=== PATIENT | female | born 2000 | race Caucasian/White ===

== ENCOUNTER 2022-02-21 18:46 | Emergency (ER) | payer OTHER, SELFPAY ==
--- NOTE | 2022-02-21 18:57 | ED.URI ---
HPI - URI/Sore Throat General Chief Complaint: Upper Respiratory Infection Stated Complaint: Sore Throat,Chills,Lt Ear Irritation,Headache Time Seen by Provider: 02/21/22 18:57 Source: patient and RN notes reviewed Mode of arrival: ambulatory Limitations: no limitations History of Present Illness HPI Narrative: 21-year-old female presents to the [facility] with mom with complaints of a sore throat, chills, ear pain and headache since yesterday. Reports a fever of 102 at home. Taken Advil. APARICIO elicited complaint: sore throat Related Data Allergies Allergy/AdvReac Type Severity Reaction Status Date / Time No Known Allergies Allergy Verified 02/21/22 19:06 Review of Systems Review of Systems: All systems reviewed & are unremarkable except as noted in HPI and below Constitutional: Constitutional: Reports no additional constitutional complaints, Denies chills and Denies fever(s) Eyes: Eyes: Reports no additional eye complaints ENT: Reports as per HPI, Reports nasal congestion and Reports sore throat Cardiovascular: Cardiovascular: Reports no additional cardiovascular complaints Respiratory: Respiratory: Reports no additional respiratory complaints Gastrointestinal: Gastrointestinal: Reports no additional gastrointestinal complaints Musculoskeletal: Musculoskeletal: Reports no additional musculoskeletal complaints Integumentary/Breasts: Skin/Breast: Reports system reviewed and no additional complaints, except as docu Neurologic: Reports system reviewed and no additional complaints, except as documented Psychiatric: Psychiatric: Reports no additional psychiatric complaints Allergic/Immunologic: Allergic/Immunologic: Reports no additional allergic/immunologic complaints PMFSH Comments At the time of my signature, I reviewed and agree with the nursing past medical, surgical, social, and family history. There is no relevant family history pertinent to the patient complaint. Exam Const: General: healthy appearing, no acute distress and alert Nutritional Appearance: well nourished Orientation/consciousness: patient oriented x3 Limitations: no limitations HENMT: Head: normal to inspection Ears: external ears normal, TM's normal bilaterally and EAC's normal General nose exam: Normal external nose present and Normal nares present Face and sinus: normal facial exam Mouth: Yes Normal oral and palatal mucosa present, Yes lip normal and Yes moist mucous membranes Throat: uvula midline, abnormal tonsil bilateral erythema and hypertrophy 3+, posterior oropharynx abnormal cobblestoning and erythema; no exudates and no uvular edema Eyes: General: appearance normal, both eyes and all related structures Pupils: Equal, round and reactive pupils present Neck: Neck: normal visual inspection, no lymphadenopathy and no meningeal signs Chest: Chest palpation & inspection: normal inspection of the chest Resp: Effort & Inspection: normal respiratory effort and no use of accessory muscles Auscultation: clear to auscultation bilaterally, no crackles, no rales, no rhonchi and no wheezes Cardio: Rate: regular rate Rhythm: regular rhythm Back/Spine/Pelvis: Cervical Spine: normal cervical lordosis Thoracic/Lumbar Spine: thoracic and lumbar spine normal to inspection Skin: General skin exam: normal color Rashes: no rashes Wounds: no wounds Neuro: General: patient oriented x3, moves all extremities, no meningeal signs and no focal motor deficits Cranial nerves: Yes Equal, round and reactive pupils present Speech: normal speech Gait exam (Neuro): Normal gait present Extrem: General: normal to inspection, full ROM and capillary refill normal Psych: Appearance: grossly normal and well kempt Mental Status: mental status grossly normal Affect: normal affect Attitude: cooperative Thought content: Yes Normal thought content present Course Course Emergency Course: Discharge instructions reviewed with patient, as well as provided in wri
[2022-02-21 19:04] VITALS: BP 126/67; PULSE 102; RESP 18; TEMP 36.3; O2SAT 99
== END 2022-02-21 19:24 | disposition home or self-care (01) ==
PROVIDERS: Emergency Provider Nurse Practitioner; PCP Registered Nurse
DX: J02.0 Streptococcal pharyngitis (principal)
CPT/HCPCS: 87880; 99213; G0463

== ENCOUNTER → 2022-02-28 09:47 | Outpatient (CLI) | payer OTHER, SELFPAY ==
--- NOTE | ~2022-02-28 | US_ITS ---
EXAMINATION: US pelvic complete w TV DATE: 02/28/2022 10:50 INDICATION: Pelvic pain TECHNIQUE: Multiple transabdominal and endovaginal sonographic images of the pelvis were obtained. COMPARISON: None. FINDINGS: The anteverted uterus measures 8.1 x 3.0 x 4.0 cm. The endometrial complex measures 4 mm in thicknes s. The central glandular region of the cervix surrounding the endocervical canal demonstrates an irre gular appearing full-thickness with heterogeneous echogenicity particularly along the posterior side of the cervix. There is no abnormal increased vascularity within this region on color Doppler or disc rete masses to suggest a polyp or leiomyoma. The right ovary measures 2.5 x 1.6 x 2.0 cm. 4 mm anecho ic follicle in the right ovary. The left ovary measures 2.0 x 1.5 x 1.5 cm. There is normal vascular flow in the ovaries. There is no free fluid in the pelvis. IMPRESSION: 1. Irregular heterogeneous appearance to the brain to the region of the central cervix without discre te mass or hyperemia. Differential includes cervicitis either acute or chronic, endometrial or endoce rvical hyperplasia, complex nabothian cysts or less likely malignancy given patient age. Reviewed, dictated and finalized at location A. IMPRESSION: 1. Irregular heterogeneous appearance to the brain to the region of the central cervix without discrete mass or hyperemia. Differential includes cervicitis ei ther acute or chronic, endometrial or endocervical hyperplasia, complex nabothi an cysts or less likely malignancy given patient age.
== END ==
PROVIDERS: PCP Nurse Practitioner; Visit Provider Nurse Practitioner
DX: R10.2 Pelvic and perineal pain (principal); N85.8 Other specified noninflammatory disorders of uterus
CPT/HCPCS: 76830; 76856

== ENCOUNTER 2022-08-30 13:18 | Emergency (ER) | payer OTHER, SELFPAY ==
[2022-08-30 13:26] VITALS: BP 117/80; PULSE 100; RESP 18; TEMP 36.1; O2SAT 99
--- NOTE | 2022-08-30 13:30 | ED.URI ---
HPI - URI/Sore Throat General Chief Complaint: Upper Respiratory Infection Stated Complaint: Sore Throat,Fatigue,Cough,Runny Nose Time Seen by Provider: 08/30/22 13:35 History of Present Illness HPI Narrative: 22-year-old female presented for complaint of sore throat, sinus congestion, and right ear pressure for 2 days. She denies Dizziness, tinnitus, cough, shortness of breath, wheezing, vomiting, diarrhea, fevers or chills. She has taken NyQuil and Sudafed for symptoms. She denies known sick contacts. Related Data Home Medications Medication Instructions Recorded Confirmed etonogestrel 0.12 mg-ethinyl See Rx Instructions .Route .COMPLEX 08/30/22 08/30/22 estradiol 0.015 mg/24 hr vaginal ring (EluRyng) Allergies Allergy/AdvReac Type Severity Reaction Status Date / Time No Known Allergies Allergy Verified 08/30/22 13:25 Review of Systems Review of Systems: CONSTITUTIONAL: Denies body aches, fever, chills, or sweats. EYES: Denies visual changes, redness, or discharge. ENT: Reports rhinorrhea, congestion, otalgia. CARDIOVASCULAR: Denies chest pain, palpitations, or edema. RESPIRATORY: Denies dyspnea. GASTROINTESTINAL: Denies abdominal pain, nausea, vomiting, or diarrhea. SKIN: Denies rash, itching, or wounds. MUSCULOSKELETAL: Denies back pain, joint pain, or myalgia. FOR[facility]LY [facility], [facility] Past Medical History Medical History (Updated 08/30/22 @ 13:44 by Lashell Alaniz, [employer]) No pertinent past medical history Exam Narrative: GENERAL: mildly Ill-appearing, non toxic EYES: conjunctivae clear ENT: Mucous membranes moist. TM pearly brooks with normal light reflex bilaterally, Right with effusion no erythema/bulging; no tragal tenderness. Oropharynx mildly erythematous without lesions. Tonsils not enlarged. No drooling, no hoarseness, no trismus, uvula midline. No tripod positioning, hot potato voice, or soft palate swelling. NECK: Supple. No lymphadenopathy CHEST: Clear to auscultation, breath sounds equal. HEART: Regular rate and rhythm. No murmur heard. SKIN: Warm, dry, no rash. NEURO: Alert and oriented x3. Course Course Emergency Course: Patient is aware of diagnosis, understands and agrees to treatment plan. Anticipatory guidance given. Patient agrees to follow-up as directed and is aware of reasons to seek care at the emergency department. Portions of this record may have been created with voice recognition software Level of Care: Express Care Visit Vital Signs Vital signs: Vital Signs Temperature 96.9 F L 08/30/22 13:26 Pulse Rate 100 08/30/22 13:26 Respiratory Rate 18 08/30/22 13:26 Blood Pressure 117/80 08/30/22 13:26 Pulse Oximetry 99 08/30/22 13:26 Oxygen Delivery Room Air 08/30/22 13:26 Temperature 96.9 F L 08/30/22 13:26 Pulse Rate 100 08/30/22 13:26 Respiratory Rate 18 08/30/22 13:26 Blood Pressure 117/80 08/30/22 13:26 Pulse Oximetry 99 08/30/22 13:26 Oxygen Delivery Room Air 08/30/22 13:26 MDM - URI/Sore Throat MDM Narrative Medical decision making narrative: strep result reviewed with pt. Advise supportive treatments. Patient is appropriate for outpatient treatment and follow-up. Differential Diagnosis Differential diagnosis: Likely upper respiratory infection, otitis media, sinusitis, viral infection and pharyngitis Discharge Plan Discharge Clinical Impression: Upper respiratory infection Qualifiers: URI type: unspecified URI Qualified Code(s): J06.9 - Acute upper respiratory infection, unspecified Patient Disposition: Home, Self-Care Condition: Stable Instructions: Antibiotic Form Additional Instructions: Rapid strep swab was negative today You will be notified in a few days if the culture comes back positive for strep, and appropriate antibiotics will be called in at that time. if symptoms are due to a viral illness, it is not treated with antibiotics. Viral symptoms can be present for up to 10-14 days. Re
== END 2022-08-30 13:44 | disposition home or self-care (01) ==
PROVIDERS: Emergency Provider Nurse Practitioner Family; PCP Registered Nurse
DX: J06.9 Acute upper respiratory infection, unspecified (principal)
CPT/HCPCS: 87081; 87880; 99213; G0463

== ENCOUNTER 2024-03-30 08:08 | Emergency (ER) | payer OTHER, SELFPAY ==
[2024-03-30 08:50] VITALS: BP 119/71; PULSE 98; RESP 18; TEMP 37.2; O2SAT 98
[2024-03-30 09:13] LABS: EDSTREPNEGPOS1 Negative (Negative)
--- NOTE | 2024-03-30 09:18 | ED_ITS ---
HPI - URI/Sore Throat General Chief Complaint: Upper Respiratory Infection Stated Complaint: Sore throat / fever / chills / nausea / headache Time Seen by Provider: 03/30/24 09:09 Source: patient and RN notes reviewed Mode of arrival: ambulatory Limitations: no limitations History of Present Illness HPI Narrative: Patient presents today complaining of sore throat, fever up to 102, nausea, headaches, chills. Symptoms began yesterday. Denies congestion, rhinorrhea, cough. Currently rates her pain 02/25 and has been taking Tylenol and ibuprofen, which does provide some relief. Denies any known sick contacts. No history of asthma or COPD. She is a nonsmoker. Related Data Home Medications Medication Instructions Recorded Confirmed etonogestrel 0.12 mg-ethinyl See Rx Instructions .Route .COMPLEX 08/30/22 03/30/24 estradiol 0.015 mg/24 hr vaginal ring (EluRyng) Allergies Allergy/AdvReac Type Severity Reaction Status Date / Time No Known Allergies Allergy Verified 03/30/24 08:56 Review of Systems Review of Systems: CONSTITUTIONAL: Denies body aches, or sweats.+ fever, chills EYES: Denies visual changes, redness, or discharge. ENT: Denies rhinorrhea, congestion, or otalgia.+ sore throat CARDIOVASCULAR: Denies chest pain, palpitations, or edema. RESPIRATORY: Denies cough or dyspnea. GASTROINTESTINAL: Denies abdominal pain, vomiting, or diarrhea.+ nausea GENITOURINARY: Denies dysuria or hematuria. SKIN: Denies rash, itching, or wounds. MUSCULOSKELETAL: Denies back pain, joint pain, or myalgia. NEUROLOGIC: Denies numbness, tingling, or weakness.+ headache PSYCH: Denies depression or anxiety. [facility] Past Medical History Medical History No pertinent past medical history Comments At time of signature, I have reviewed and agree with nursing past medical, surgical, social and family history unless otherwise noted. Please see nursing chart for further information. There is no relevant family history pertinent to the presenting complaint Exam Narrative: GENERAL: Mildly ill-appearing, well-nourished, and in no acute distress. HEAD: Normocephalic, atraumatic. EYES: EOMI. No redness or drainage. Conjunctivae normal. ENT: Mucous membranes pink and moist. Nares clear. No rhinorrhea. TMs normal bilaterally. Throat erythematous without edema exudate. Uvula midline. NECK: Normal AROM. Supple. No lymphadenopathy. CHEST: No respiratory distress. Clear to auscultation. HEART: Regular rate and rhythm. No murmur appreciated. EXTREMITIES: Normal range of motion. No edema. SKIN: Warm, dry, no rash. Capillary refill normal. Normal skin turgor. NEURO: No focal deficits. Alert and oriented x3. Gait steady. PSYCH: Normal affect. No signs of depression or anxiety. Course Course Level of Care: Express [facility] Visit Vital Signs Vital signs: Vital Signs Temperature 99 F 03/30/24 08:50 Pulse Rate 98 03/30/24 08:50 Respiratory Rate 18 03/30/24 08:50 Blood Pressure 119/71 03/30/24 08:50 Pulse Oximetry 98 03/30/24 08:50 Oxygen Delivery Room Air 03/30/24 08:50 Temperature 99 F 03/30/24 08:50 Pulse Rate 98 03/30/24 08:50 Respiratory Rate 18 03/30/24 08:50 Blood Pressure 119/71 03/30/24 08:50 Pulse Oximetry 98 03/30/24 08:50 Oxygen Delivery Room Air 03/30/24 08:50 Reviewed MDM - URI/Sore Throat MDM Narrative Medical decision making narrative: Testing negative. Symptoms likely viral in etiology. Discussed o [id number] medication use and duration of illness. Prescription for Zofran sent to pharmacy for nausea. Anticipatory guidance given. ED precautions given. Differential Diagnosis Differential diagnosis: Likely upper respiratory infection, viral infection, influenza, pharyngitis and other (COVID, strep) Lab Data Attestation: I reviewed the patient's lab results. Labs: Lab Results 03/30/24 03/30/24 Range/Units 09:11 09:35 POC Influenza A Ag Negative (Negative) POC Influenza B Ag Negative (Negative) POC SARS CoV-2 Ag Negative (Negative) POC Grp A Strep Screen Negative (Negative) Critical Care Time Critical Care Time Critical Care Time: No Discharge Plan Discharge Clinical Impression: Viral syndrome Patient Disposition: Home, Self-Care Condition: Stable Instructions: Viral Syndrome (ED) Additional Instructions: Your COVID-19, influenza, and rapid strep swabs were negative today at [facility]. You will be notified in a few days if the culture comes back positive for strep, and appropriate antibiotics will be called in for you at that time. Your symptoms are likely due to a viral illness, which is not treated with antibiotics. Viral symptoms can be present for up to 7-10 days. Take Tylenol or ibuprofen for fever or pain. Take the Zofran for nausea or vomiting. Rest and stay hydrated. Follow up with your PCP in 7 days if symptoms are not improving. Go to the ER immediately if you have any difficulty breathing or swallowing. Prescriptions: New ondansetron 8 mg tablet,disintegrating 8 mg PO Q4-6H PRN (Reason: nausea and vomiting) Qty: 20 0RF No Action etonogestrel-ethinyl estradiol [EluRyng] 0.12-0.015 mg/24 hr ring See Rx Instructions .ROUTE .COMPLEX Rx Instructions: 1 vag ring vaginally Follow-up/Referrals: Kasey,MOMO Coleman [Primary Care Provider] - Time of Disposition: 09:42
[2024-03-30 09:37] LABS: EDCOVIDSCREEN Negative (Negative); EDINFLUASCREEN Negative (Negative); EDINFLUBSCREEN Negative (Negative)
== END 2024-03-30 09:45 | disposition home or self-care (01) ==
PROVIDERS: Emergency Provider Nurse Practitioner; PCP Registered Nurse
DX: B34.9 Viral infection, unspecified (principal); Z20.822 Contact with and (suspected) exposure to COVID-19
CPT/HCPCS: 87081; 87426; 87804; 87880; 99213; G0463

== ENCOUNTER 2024-08-09 08:10 | Emergency (ER) | payer OTHER, SELFPAY ==
--- OUTSIDE RECORDS SUMMARY | 2024-08-09 08:27 | XMS_ITS | Referral Summary ---
Author Organization [facility] Address [address] [place] [address] Care Team Providers Care Pattern Grader Name Role Phone Unavailable Primary Care Provider Unavailabl e Source Comments [facility] [employer],non-owned Affiliates and Associated Physician Practices is amultiple site organization consisting of ambulatory clinics and hospital sitesin [place], [place], [place] and [place]. This disclosure is being madepursuant to the Care Everywhere program and may not contain all information available regarding this patient. Last updated 18.[facility] [employer] Allergies No known active allergies Medications * Be aware that medications may not be up to date on this document. Alwaysverify current medications with the patient. Medication Sig Dispensed Refills Start Date End Date Status Other control Active Social History Tobacco Use Types Packs/Day Years Used Date Smoking Tobacco: Never Smokeless Tobacco: Never Sex and Gender Information Value Date Recorded Sex Assigned at Not on file Gender Identity Not on file Sexual Orientation Not on file Last Filed Vital Signs Vital Sign Reading Time Taken Comments Blood Pressure 108/64 01/26/2019 10:14 AM CDT Pulse 97 01/26/2019 10:14 AM CDT Temperature 36.9 C (98.4 F) 01/26/2019 10:14 AM CDT Respiratory Rate 16 01/26/2019 10:14 AM CDT Oxygen Saturation 98% 01/26/2019 10:14 AM CDT Inhaled Oxygen Concentration - - Weight 72.6 kg (160 lb) 01/26/2019 10:14 AM CDT Height 165.1 cm (5' 5 ) 01/26/2019 10:14 AM CDT Body Mass Index 26.63 01/26/2019 10:14 AM CDT Plan of Treatment Not on file
--- OUTSIDE RECORDS SUMMARY | 2024-08-09 08:27 | XMS_ITS | Clinical Summary ---
Author Organization [facility] Address [address] [place] [id number] Care Team Providers Care Farm Marketer Name Role Phone Virginia Parks Primary Care Provider + Allergies No known active allergies Medications azelastine (ASTELIN) 137 mcg (0.1 %) nasal spray Administer 1 spray into affected nostril(s) 2 (two) times a day 9 Active Active Problems No known active problems Surgical History Surgery Date Site/Laterality Comments NO PAST SURGERIES Medical History Medical History Date Comments No known health problems Family History Medical History Relation Name Comments Lung cancer Father Bladder Cancer Maternal Grandfather No Known Problems Mother Relation Name Status Comments Father Alive Maternal Grandfather Mother Alive Social History Tobacco Use Types Packs/Day Years Used Date Smoking Tobacco: Never Smokeless Tobacco: Never Alcohol Use Standard Drinks/Week Comments Yes 0 (1 standard drink = 0.6 oz pur e alcohol) social Personal Safety Answer Date Recorded Getting School Help Needed Not on file 09/01 Comments No Sex and Gender Information Value Date Recorded Sex Assigned at Not on file Legal Sex Female 7:05 PM TEST LEAD APPLICATION TESTING Gender Identity Not on file Sexual Orientation Not on file Obstetrics History Para Term AB IAB SAB Ectopic Multiple Livin g Live Births 0 0 0 0 0 0 0 0 0 0 0 Last Filed Vital Signs Vital Sign Reading Time Taken Comments Blood Pressure 108/68 06/02/2020 11:34 AM TEST LEAD APPLICATION TESTING Pulse - - Temperature - - Respiratory Rate - - Oxygen Saturation - - Inhaled Oxygen Concentration - - Weight 83.7 kg (184 lb 9.6 oz) 06/02/2020 11:34 AM TEST LEAD APPLICATION TESTING Height - - Body Mass Index - - Plan of Treatment Not on file Insurance [employer] OPEN ACCESS Care Teams Farm Marketer Relationship Specialty Start Date End Date Virginia Parks PA [address] [place] [id number] PCP - General Nurse Practitioner 12/15/19
--- OUTSIDE RECORDS SUMMARY | 2024-08-09 08:27 | XMS_ITS | Encounter Summary ---
Author Organization [facility] Address formerly [facility] [place] [address] Care Team Providers Care Senior Air Director Name Role Phone Virginia Parks TURNERMOMO Primary Care Provider [phone] Encounter Details Date Type Department Care Team (Late st Contact Info) Description 03/01/2023 [employer] Message Enc [facility] Family & Internal Medicine [facility] [address] [place] [id number] Justin Winston DO [address] [place] [address] Strep Culture Result Social History Tobacco Use Types Packs/Day Years Used Date Smoking Tobacco: Never Smokeless Tobacco: Never Alcohol Use Standard Drinks/Week Comments Yes 0 (1 standard drink = 0.6 oz pur e alcohol) weekends AUDIT-C Answer Date Recorded Frequency of Alcohol Consumption Never 01/28/2019 Average Number of Drinks Not on file 019 Frequency of Binge Drinking Not on file 01/16 PHQ-2 Answer Date Recorded PHQ-2 Score - If the patient scores above 3, please move on to questions 3-9 0 11/01/2021 Comments No Sex and Gender Information Value Date Recorded Sex Assigned at Not on file Legal Sex Female 6:59 PM CDT Gender Identity Not on file Sexual Orientation Not on file documented as of this encounter Plan of Treatment Not on file documented as of this encounter Visit Diagnoses Not on filedocumented in this encounter Additional Health Concerns Infection Onset Date Last Indicated Resolved Time COVID-19 Rule Out 04/01/2024 04/01/2024 04/01/2024 2:25 PM CDT Assessment Noted Time PHQ-9 Depression Total Score: 0 02/18/20 10:00 AM CDT documented as of this encounter Care Teams Senior Air Director Relationship Specialty Start Date End Date Virginia Parks APNP [address] [place] [id number] PCP - General NURSE PRACTITIONER 01/28/19 documented as of this encounter
--- OUTSIDE RECORDS SUMMARY | 2024-08-09 08:27 | XMS_ITS | Referral Summary ---
Author Organization [facility] Address [address] [place] [phone] Care Team Providers Care Screen Maker Name Role Phone Virginia Parks Primary Care Provider + Allergies No known active allergies Medications azelastine (ASTELIN) 137 mcg (0.1 %) nasal spray Administer 1 spray into affected nostril(s) 2 (two) times a day 9 Active Active Problems No known active problems Social History Tobacco Use Types Packs/Day Years [...] on file Legal Sex Female 7:05 PM OIL WINTERIZER Gender Identity Not on file Sexual Orientation Not on file Last Filed Vital Signs Vital Sign Reading Time Taken Comments Blood Pressure 108/68 06/02/2020 11:34 AM OIL WINTERIZER Pulse - - Temperature - - Respiratory Rate - - Oxygen Saturation - - Inhaled Oxygen Concentration - - Weight 83.7 kg (184 lb 9.6 oz) 06/02/2020 11:34 AM OIL WINTERIZER Height - - Body Mass Index - - Plan of Treatment Not on file Insurance [employer] OPEN ACCESS Care Teams Screen Maker Relationship Specialty Start Date End Date Virginia Parks PA [address] [place] [id number] PCP - General Nurse Practitioner 12/15/19
--- OUTSIDE RECORDS SUMMARY | 2024-08-09 08:27 | XMS_ITS | Patient Health Summary ---
Author Organization [facility] [employer] Address [address] [place] [address] Care Team Providers Care Mortgage Loan Processing Clerk Name Role Phone Unavailable Primary Care Provider Unavailabl e Note from [facility] [employer] [facility],non-owned Affiliates and Associated Physician Practices is amultiple site organization consisting of ambulatory clinics and hospital sitesin [place], [place], [place] and [place]. This disclosure is being madepursuant to the Care Everywhere program and may not contain all information available regarding this patient. Last updated 18.[facility] [employer] Allergies No known active allergies Medications * Be aware that medications may not be up to date on this document. Alwaysverify current medications with the patient. * Other control Social History Tobacco Use Types Packs/Day Years [...] Mass Index 26.63 01/26/2019 10:14 AM CDT Procedures * STREP A SCREEN - POINT OF CARE (AMB) STL(Performed 01/26/2019) Performed for Nasopharyngitis acute Results * STREP A SCREEN - POINT OF CARE (AMB) STL (01/26/2019 10:25 AM CDT) Strep A Rapid POCT Negative Negative Strep A Internal Control Present Lot # [id number] Expiration Date 06 17 2020 Throat ENTIRE THROAT (SURFACE REGION OF NECK) / Unknown 01/26/2019 10:25 AM CDT Issa Us PAINTER TUMBLING BARREL-BRAZER REPAIR AND [facility] - POINT OF CA RE ORDERABLES
--- OUTSIDE RECORDS SUMMARY | 2024-08-09 08:27 | XMS_ITS | Clinical Summary ---
Author Organization [facility] Address [address] [place] [address] Care Team Providers Care Air Chief Marshal Name Role Phone Virginia Parks TURNERMOMO Primary Care Provider Allergies No known active allergies Medications ELURYNG 0.12-0.015 MG/24HR RING 2 Active ondansetron (ZOFRAN-ODT) 8 MG disintegrating tablet 4 Active cefdinir (OMNICEF) 300 MG Cap capsuleIndications: Tonsillitis Take 1 capsule (300 mg total) by mouth 2 (two) times daily. 20 capsule 4 Active Active Problems Problem Noted Date Diagnosed Date COVID-19 vaccine series completed 06/01/2021 Immunizations Name Administration Dates Next Due DTaP (Daptacel) 09/12/2001,2000 Dtap (Generic) 02/09/2005,2000,2000 Fluzone 6 Months+ Quad (0.5 mL Prefilled Syringe) 02/18/2020 HPV4 (Gardasil) 10/16/2012,03/20/2012,12/26/2011 Hepatitis A (Generic) 09/25/2002 Hepatitis A (Havrix 1440 El.U) 09/25/2002 Hepatitis A Vaccine - 2 Dose 09/25/2002,03/05/20 02 Hepatitis B 02/09/2005, 2,03/06/2001,12/11,2000 Hepatitis B (Generic: Adult) 02/09/2005,09/13/19 02 Hepatitis B Vaccine Adult 02/09/2005,09/12/2001, 2000 Hib Vaccine, Prp-Omp 06/05/2001,2000,05/01 IPV/OPV 02/09/2005,09/12/2001 Influenza (Generic) 03/31/2021 MMR (Generic) 02/09/2005,06/05/2001 Menactra 01/22/2015 Meningococcal (Menactra) 01/22/2015,02/13/2014 Meningococcal Vac A,C,Y,W-135 Sc 02/13/2014 PFIZER COVID-19 (ORIGINAL FO RMULATION, PURPLE CAP) mRNA, LNP-S, PF, 30 MCG/0.3 ML DOSE 01/25/2021,12/30/2020 Pneumococcal (Prevnar 13) 03/06/2001,,2000,05/01 Pneumococcal (Prevnar 7) 03/06/2001 Polio IPV (Ipol) 02/09/2005,09/12/2001 Polio Ipv (Generic) 02/09/2005, 2,2000,05/01 Tdap (Generic) 02/03/2022,12/26/2011 Varicella (Varivax) 12/26/2011 Varicella Vaccine 12/26/2011,03/06/2001 Family History Medical History Relation Comments Diabetes Maternal Grandfather Heart Disease Maternal Grandfather Hypertension Maternal Grandfather Cancer Maternal Grandmother breast Diabetes Maternal Grandmother Hypertension Maternal Grandmother Cancer Paternal Grandfather skin Cancer Paternal Grandmother Relation Status Comments Maternal Grandfather Maternal Grandmother Paternal Grandfather Paternal Grandmother Social History Tobacco Use Types Packs/Day Years Used Date Smoking Tobacco: Never Smokeless Tobacco: Never Tobacco Cessation:Counseling Given: No Alcohol Use Standard Drinks/Week Comments Yes 0 (1 standard drink = 0.6 oz pur e alcohol) weekends AUDIT-C Answer Date Recorded Frequency of Alcohol Consumption Never 01/28/2019 Average Number of Drinks Not on file 019 Frequency of Binge Drinking Not on file 01/16 PHQ-2 Answer Date Recorded Patient Health Questionnaire-2 Score 0 04/01/2024 Comments No Sex and Gender Information Value Date Recorded Sex Assigned at Not on file Legal Sex Female 6:59 PM CDT Gender Identity Not on file Sexual Orientation Not on file Last Filed Vital Signs Vital Sign Reading Time Taken Comments Blood Pressure 110/68 04/01/2024 1:19 PM CDT Pulse 93 04/01/2024 1:19 PM CDT Temperature 36.7 C (98 F) 04/01/2024 1:19 PM CDT Respiratory Rate 16 04/01/2024 1:19 PM CDT Oxygen Saturation 98% 04/01/2024 1:19 PM CDT Inhaled Oxygen Concentration - - Weight 89.5 kg (197 lb 6.4 oz) 04/01/2024 1:19 P M CDT Height 165.1 cm (5' 5 ) 04/01/2024 1:19 PM CDT Body Mass Index 32.85 04/01/2024 1:19 PM CDT Plan of Treatment Health Maintenance Due Date Last Done Comments Cervical Cancer Screening Pap Smear (Age 21 to 29) Every 3 Years 2000 Cervical Cancer Screening 2000 Chlamydia Screening Females ages 16-24 2016 Hepatitis C 2018 Annual Physical 02/17/2021 02/18/2020 COVID-19 Vaccine ( season) 2024 01/25/2021, 12/30/2020 Influenza Adult (#1) 2024 03/31/2021, 02/18/20 20 PHQ-2 (Physician [place]) 06/18/2024 04/01/2024 PHQ-2 (Physician [place]) 04/01/2025 04/01/2024 DTaP, Tdap and Td Vaccines (8 - Td or Tdap) 02/04/2032 02/03/2022, 12/26/2011, 02/09/2005, Additional history exists Pneumococcal Vaccine: Pediatrics (0 to 5 Years) and At-Risk Patients (6 to 64 Years) Completed 03/06/2001, 03/06/2001, 2000, Additional history exists Hepatitis B Vaccines Completed 02/09/2005, 02/09/2005, 02/09/2005, Additional history exists HPV Vaccines Completed 10/16/2012, 08/2011, 12/26/2011 Meningococcal Vaccine Aged Out 01/22/2015 , 01/22/2015, 02/13/2014, Additional history exists No longer eligible based on patient's age to complete this topic Meningococcal B Vaccine Aged Out No l onger eligible based on patient's age to complete this topic RSV Immunizations Under 20 Months Aged Out No longer eligible based on patient's age to complete this topic Insurance [facility] Care Teams Air Chief Marshal Relationship Specialty Start Date End Date iVrginia Parks APNP [address] [place] [id number] PCP - General NURSE PRACTITIONER 01/28/19
--- OUTSIDE RECORDS SUMMARY | 2024-08-09 08:27 | XMS_ITS | Clinical Summary ---
Author Organization [facility] Address [address] [place] [address] Care Team Providers Care Denier Control Operator Name Role Phone Unavailable Primary Care Provider Unavailabl e Source Comments [facility],non-owned Affiliates and Associated Physician Practices is amultiple site organization consisting of ambulatory clinics and hospital sitesin [place], [place], [place] and [place]. This disclosure is being madepursuant to the Care Everywhere program and may not contain all information available regarding this patient. Last updated 18.[facility] Allergies No known active allergies Medications * [...] 01/26/2019 10:14 AM CDT Plan of Treatment Health Maintenance Due Date Last Done Comments PAP SMEAR 2000 HIV SCREENING 2015 HPV VACCINE (1 - 3-dose series) 2015 CHLAMYDIA/GONORRHEA SCREENING 2016 HEPATITIS C SCREENING 02/26/2018 DTAP/TDAP/TD VACCINES (1 - Tdap) 2019 HEPATITIS B VACCINE (1 of 3 - 19+ 3-dose series) 2019 COVID-19 VACCINE (1 - 2023-2 5 season) 2024 INFLUENZA VACCINE (#1) 2024 DEPRESSION SCREENING 06/18/2024 ZOSTER VACCINE (1 of 2) 2050 HIB VACCINE Aged Out No longer eligi ble based on patient's age to complete this topic MENINGOCOCCAL (Group B) VACCINE Aged Out No longer eligible based on patient's age to complete this topic MENINGOCOCCAL VACCINE Aged Out No zaynab darren eligible based on patient's age to complete this topic PNEUMOCOCCAL VACCINE Aged Out No long er eligible based on patient's age to complete this topic
[2024-08-09 08:37] VITALS: BP 117/74; PULSE 99; RESP 18; TEMP 36.3; O2SAT 100
--- NOTE | 2024-08-09 08:49 | ED.URI ---
HPI - URI/Sore Throat General Chief Complaint: Upper Respiratory Infection Stated Complaint: cold symptoms/vomiting/cough Source: patient and RN notes reviewed Mode of arrival: ambulatory Limitations: no limitations History of Present Illness HPI Narrative: 24-year-old female presented for complaint nasal congestion, sore throat cough and ear pressure. Onset 4 days. States the day before symptom onset she had 24 hours of nausea vomiting, diarrhea which have resolved. Endorses possible fever. Denies shortness of breath, wheezing or lethargy. Taking DayQuil NyQuil for symptoms. MD elicited complaint: cough Related Data Home Medications ?Medication ?Instructions ?Recorded ?Confirmed ?Last Taken ?Type etonogestrel 0.12 mg-ethinyl See Rx Instructions .Route .COMPLEX 08/30/22 03/30/24 Unknown History estradiol 0.015 mg/24 hr vaginal ring (EluRyng) Allergies Allergy/AdvReac Type Severity Reaction Status Date / Time No Known Allergies Allergy Verified 08/09/24 08:56 Review of Systems Review of Systems: per [facility] Past Medical History Medical History No pertinent past medical history Exam Narrative: GENERAL: Mildly Ill-appearing, nontoxic no acute distress. EYES: PERRLA, conjunctivae clear ENT: Mucous membranes moist. TM pearly brooks with dull light reflex bilaterally; no tragal tenderness. Oropharynx erythematous without lesions or exudate, no drooling, no hoarseness, no trismus, uvula midline. No tripod positioning, muffled voice, soft palate or pharyngeal wall bulging NECK: Supple. No lymphadenopathy CHEST: Clear to auscultation, breath sounds equal. No wheezing, rhonchi, rales, or stridor. No respiratory distress, speaks in full sentences. HEART: Regular rate and rhythm. No murmur heard. SKIN: Warm, dry, no rash. NEURO: Alert and oriented x3. PSYCH: Normal mood and affect Course Course Emergency Course: Patient is aware of diagnosis, understands and agrees to treatment plan. Anticipatory guidance given. Patient agrees to follow-up as directed and is aware of reasons to seek care at the emergency department. Portions of this record may have been created with voice recognition software Level of Care: Express Care Visit Vital Signs Vital signs: Vital Signs Temperature 97.4 F L 08/09/24 08:37 Pulse Rate 99 08/09/24 08:37 Respiratory Rate 18 08/09/24 08:37 Blood Pressure 117/74 08/09/24 08:37 Pulse Oximetry 100 08/09/24 08:37 Oxygen Delivery Room Air 08/09/24 08:37 Temperature 97.4 F L 08/09/24 08:37 Pulse Rate 99 08/09/24 08:37 Respiratory Rate 18 08/09/24 08:37 Blood Pressure 117/74 08/09/24 08:37 Pulse Oximetry 100 08/09/24 08:37 Oxygen Delivery Room Air 08/09/24 08:37 reviewed MDM - URI/Sore Throat MDM Narrative Medical decision making narrative: Negative flu and COVID. Discussed physical exam findings. Advised supportive measures and signs/symptoms to go to the ER. Pt is appropriate for outpt treatment and f/u. Differential Diagnosis Differential diagnosis: Likely upper respiratory infection, sinusitis and viral infection Discharge Plan Discharge Clinical Impression: Viral infection Patient Disposition: Home, Self-Care Condition: Stable Instructions: Antibiotic Form, Upper Respiratory Infection (ED) Additional Instructions: Flu and COVID negative. You should avoid crowds until you are fever free for 24 hours without the use of fever reducing medications, or the symptoms are improved Rest. Drink plenty of fluids. Tylenol 1000mg every 8 hours as needed for pain/fever Flonase spray and Zyrtec (or Claritin/Jaye) for sinus pressure/congestion over the counter Cough syrup may cause drowsiness; avoid driving or take it at night time. Follow up with your primary care provider as needed Go to the ER for worsening symptoms or concerns Patient Language: Greek Prescriptions: No Action etonogestrel-ethinyl estradiol [EluRyng] 0.12-0.015 mg/24 hr ring See Rx Instructions .ROUTE .COMPLEX Rx Instructions: 1 vag ring vaginally ondansetron 8 mg tablet,disintegrating 8 mg PO Q4-6H PRN (Reason: nausea and vomiting) Qty: 20 0RF Follow-up/Referrals: Kasey,MOMO Coleman [Primary Care Provider] - Time of Disposition: 08:57
[2024-08-09 08:56] LABS: EDCOVIDSCREEN Negative (Negative); EDINFLUASCREEN Negative (Negative); EDINFLUBSCREEN Negative (Negative)
== END 2024-08-09 08:59 | disposition home or self-care (01) ==
PROVIDERS: Emergency Provider Nurse Practitioner Family; PCP Registered Nurse
DX: B34.9 Viral infection, unspecified (principal); Z20.822 Contact with and (suspected) exposure to COVID-19
CPT/HCPCS: 87426; 87804; 99212; G0463